=== PATIENT | male | born 1970 | race Caucasian/White ===

== ENCOUNTER 2019-09-15 06:20 | Day surgery (SDC) | payer OTHER ==
[~2019-09-15] VITALS: Ht 180.3 cm; Wt 96.8 kg
[2019-09-15 07:04] VITALS: BP 131/94; PULSE 69; TEMP 97.8
[2019-09-15] MEDS ORDERED: VITAMINC1000TA PO (07:07)
[2019-09-15] MEDS ORDERED: VITAMIN D 400400 IU PO (07:07)
[2019-09-15] MEDS ORDERED: OMEGA-3 FISH1000 MG PO (07:08)
[2019-09-15] MEDS ORDERED: ZESTRIL 20MG TA20 MG PO (07:08)
[2019-09-15] MEDS ORDERED: VITAMIN B COMPL1 SGL PO (07:08)
[2019-09-15] MEDS ORDERED: ZOCOR 40MG40 MG PO (07:09)
[2019-09-15] MEDS ORDERED: HCTZ 25MG TAB25 MG PO (07:10)
[2019-09-15 08:05] VITALS: BP 114/93; PULSE 70; TEMP 97.3
--- NOTE | 2019-09-15 08:05 | NUR ---
Pt to GI bay 5 via cart. Pt awake and alert. Pt ambulates to recliner with stand by assitance. Warm blanket provided. Pt denies pain or nausea. Water given per pt request. Son in room. Will continue to monitor. Call light within reach.
[2019-09-15 08:20] VITALS: BP 120/88; PULSE 57
--- NOTE | 2019-09-15 08:20 | NUR ---
Pt continues to rest. Denies needs. Call light within reach.
[2019-09-15 08:35] VITALS: BP 109/80; PULSE 61
--- NOTE | 2019-09-15 08:35 | NUR ---
Pt continues to rest. Denies needs. Call light within reach.
--- NOTE | 2019-09-15 08:45 | NUR ---
IV site discontinued with all parts intact. Pt up to dress. Call light within reach.
--- NOTE | 2019-09-15 08:55 | NUR ---
Pt asking requesting to leave without post consultation with . Discharge instructions reviewed. Pt voices understanding. Encouraged pt to call physician with any question he may have. Pt voices understanding. Pt escorted to private car via wheel chair. Pt accompanied home by his son.
== END 2019-09-15 08:55 | disposition home or self-care (01) ==
LOC: SDCO 06:20
DX: Z12.11 Encounter for screening for malignant neoplasm of colon (principal); Z86.010 Personal history of colon polyps; Z80.0 Family history of malignant neoplasm of digestive organs; K62.1 Rectal polyp; E78.00 Pure hypercholesterolemia, unspecified; Z87.891 Personal history of nicotine dependence
CPT/HCPCS: J2250; J2405; J3010; J7030